=== PATIENT | male | born 1965 | race Caucasian/White ===

== ENCOUNTER → 2024-11-11 13:37 | Outpatient (CLI) | payer OTHER, SELFPAY ==
--- NOTE | 2024-11-11 13:39 | DI.MRI.S_ITS ---
PROCEDURE: MR PELVIC PROSTATE PROTOCOL INDICATIONS: Elevated PSA TECHNIQUE: Coronal HASTE, axial T1 FSE with fat saturation, 3-plane nonbreath-hold T2 FSE. After the administration of contrast, dynamic axial, delayed axial and coronal VIBE or 2-D FLASH with fat saturation through the pelvis. Diffusion weighted imaging and ADC was performed. COMPARISON: None. FINDINGS: Image quality: Diffusion weighted and dynamic contrast enhanced images are diagnostic. Prostate: Gland size is 4.9 x 3.4 x 3.7 cm; ellipsoid gland volume is 32 mL. PSA not available to calculate PSA density. Transitional zone heterogenous nodules are present, either well encapsulated or mostly encapsulated, compatible with PI-RADS 1 or 2 likely BPH nodules. Mildly T2 hypointense heterogenous striated appearance of the peripheral zone is commonly seen with current or prior prostatitis, PI-RADS 2. More focal areas of signal abnormality as follows. Left peripheral zone posteromedial region apex (4/15). DWI score 3 (25/16, 24/16). T2 score 3. DCE negative. PI-RADS 3. This measures 1.1 x 0.9 cm Right anterior peripheral zone lesion measuring 0.7 cm in the mid gland (4/14). DWI score 4. DCE positive. T2 score 4. PI-RADS 4. No definite extracapsular disease. Seminal vesicles are clear. Genitourinary system: Trabeculated bladder with small diverticula, likely from chronic obstruction Bowel and peritoneum: No bowel obstruction in the lower abdomen. No pathologic ascites. Nodes and vessels: No enlarged lymph nodes by size criteria. No aneurysmal vessel identified. Soft tissues: No specific pelvic wall abnormality Bones: No aggressive appearing osseous abnormality IMPRESSION: PI-RADS 3 and 4 lesions as described above in the peripheral zone bilaterally. No definite seminal vesicle involvement or extracapsular measurable disease. No pelvic lymphadenopathy by size criteria. No aggressive osseous abnormality. Dictated by: Keith Lujan M.D. on 11/12/2024 at 8:53 Approved by: Keith Lujan M.D. on 11/12/2024 at 9:04
== END ==
LOC: MRI 13:38
PROVIDERS: PCP Family Medicine; Referring Provider Urology; Visit Provider Urology
DX: R97.20 Elevated prostate specific antigen [PSA] (principal); N32.89 Other specified disorders of bladder
CPT/HCPCS: 72197; A9579

== ENCOUNTER → 2024-11-18 11:07 | Outpatient (CLI) | payer OTHER, SELFPAY ==
[2024-11-18 12:59] LABS: Prostate Specific Antigen 6.56 ng/mL (0.10-4.00)
== END ==
PROVIDERS: PCP Family Medicine; Referring Provider Urology; Visit Provider Urology
DX: R97.20 Elevated prostate specific antigen [PSA] (principal)
CPT/HCPCS: 36415; 84153